=== PATIENT | female | born 1970 | race Caucasian/White ===

== ENCOUNTER 2017-04-08 01:34 | Inpatient (IN) | payer MEDICAID ==
[~2017-04-08] VITALS: Ht 160 cm; Wt 63.5 kg
[2017-04-08] VITALS (10 sets, daily range): BP systolic 117–124; BP diastolic 69–76; PULSE 71–90; RESP 16–22; TEMP 98.1; Ht 160 cm; Wt 63.5 kg
[~2017-04-08 01:34] MED LIST: DENIES
[2017-04-08] MEDS ORDERED: SOD CHLORIDE 0.9% 1,000 ML IV STA (02:24)
[2017-04-08 02:33] LABS: ADD SCAN DIFF NO
--- NOTE | 2017-04-08 02:33 | ERD ---
ER Documentation Chief Complaint Date/Time DATE: 04/08/17 TIME: 02:31 Chief Complaint heavy vaginal bleeding since 1 pm HPI 46-year-old male presents here in emergency department for complaints of vaginal bleeding that started 5 days ago, worst tonight. Patient has soaked multiple pads today. Patient has history of uterine fibroids. Patient has not had any menstruation last 2 months. Patient is complaining of pelvic pain and cramping pain him a 6/10 scale, not better or worse with anything. Patient did not take any medication to stop her symptoms. ROS All systems reviewed and are negative except as per history of present illness. Medications Home Meds Reported Medications [Denies] No Conflict Check 05/17/11 Allergies Allergies: Coded Allergies: Menthol Contain Prod (Verified Allergy, Mild, 04/08/17) PMhx/Soc Medical and Surgical Hx: pt denies Surgical Hx Anesthesia Reaction: No Hx Neurological Disorder: No Hx Respiratory Disorders: No Hx Cardiac Disorders: No Hx Psychiatric Problems: No Hx Miscellaneous Medical Probl: Yes (fibroids) Hx Alcohol Use: No Hx Substance Use: No Hx Tobacco Use: No Smoking Status: Never smoker FmHx Family History: No coronary disease, No diabetes, No other Physical Exam Vitals Vital Signs Date Time Temp Pulse Resp B/P Pulse Ox O2 Delivery O2 Flow Rate FiO2 04/08/17 01:51 97.2 84 20 102/69 99 Physical Exam GENERAL: The patient is well developed and appropriate for usual state of health, patient is pale. CHEST: Clear to auscultation bilaterally. There are no rales, wheezes or rhonchi. HEART: Regular rate and rhythm. No murmurs, clicks, rubs or gallops. No S3 or S4. ABDOMEN: Soft, nontender and nondistended. Good bowel sounds. No rebound or guarding. No gross peritonitis. No gross organomegaly or masses. No Lam sign or McBurney point tenderness. BACK: No midline or flank tenderness. EXTREMITIES: Equal pulses bilaterally. There is no peripheral clubbing, cyanosis or edema. No focal swelling or erythema. Full range of motion. Grossly neurovascularly intact. NEURO: Alert and oriented. Cranial nerves 2-12 intact. Motor strength in all 4 extremities with 5/5 strength. Sensation grossly intact. Normal speech and gait. SKIN: There is no apparent rash or petechia. The skin is warm and dry. HEMATOLOGIC AND LYMPHATIC: There is no evidence of excessive bruising or lymphedema. No gross cervical, axillary, or inguinal lymphadenopathy. Result Diagram: 04/08/176 04/08/17 0226 Results 24 hrs Laboratory Tests Test 04/08/17 02:26 04/08/17 02:52 White Blood Count 12.010^3/ul Red Blood Count 3.5610^6/ul Hemoglobin 10.2g/dl Hematocrit 30.3% Mean Corpuscular Volume 85.1fl Mean Corpuscular Hemoglobin 28.7pg Mean Corpuscular Hemoglobin Concent 33.7g/dl Red Cell Distribution Width 14.2% Platelet Count 49501^3/UL Mean Platelet Volume 9.0fl Neutrophils % 72.5% Lymphocytes % 20.5% Monocytes % 4.6% Eosinophils % 1.7% Basophils % 0.3% Nucleated Red Blood Cells % 0.0/100WBC Neutrophils # 8.710^3/ul Lymphocytes # 2.510^3/ul Monocytes # 0.610^3/ul Eosinophils # 0.210^3/ul Basophils # 0.010^3/ul Nucleated Red Blood Cells # 0.010^3/ul Sodium Level 136mmol/L Potassium Level 3.5mmol/L Chloride Level 102mmol/L Carbon Dioxide Level 25mmol/L Anion Gap 13 Blood Urea Nitrogen 17mg/dl Creatinine 0.61mg/dl Glucose Level 214mg/dl Calcium Level 9.2mg/dl Total Bilirubin 0.1mg/dl Direct Bilirubin 0.00mg/dl Indirect Bilirubin 0.1mg/dl Aspartate Amino Transf (AST/SGOT) 24IU/L Alanine Aminotransferase (ALT/SGPT) 27IU/L Alkaline Phosphatase 102IU/L Total Protein 7.1g/dl Albumin 4.6g/dl Globulin 2.50g/dl Albumin/Globulin Ratio 1.84 Beta HCG, Quantitative < 2.4mIU/ml Urine Color RED Urine Clarity SLIGHTLY CLOUDY Urine pH 6.0 Urine Specific [place] 1.020 Urine Ketones NEGATIVE Urine Nitrite NEGATIVE Urine Bilirubin NEGATIVE Urine Urobilinogen 0.2 E.U./dL Urine Leukocyte Esterase TRACE Urine Microscopic RBC >200/HPF Urine Microscopic WBC 0-2/HPF Urine Squamous Epithelial Cells FEW Urine Bacteria FEW Urine Hemoglobin 3+ Urine Glucose 0.1%% Urine Total Protein 1+ Current Medications Medications (Trade) Dose Ordered Sig/Anthony Route PRN Reason Start Time Stop Time Status Last Admin Dose Admin Sodium Chloride (NS) 1,000 ml @ 1,000 mls/hr Q1H STAT IV 04/08/17 02:24 04/08/17 03:23 DC 04/08/17 02:28 Normal saline IV bolus was given here in emergency department for rehydration, patient tolerated IV fluids. PROCEDURE: Ultrasound of the pelvis. CLINICAL INDICATION: Vaginal bleeding TECHNIQUE: Transabdominal and transvaginal ultrasound of the pelvis was performed to better evaluate the pelvic viscera. COMPARISON: No pertinent prior examinations were submitted for comparison. FINDINGS: LAST MENSTRUAL PERIOD: Unavailable UTERUS: Size: 9.2 x 5.7 x 7.2 cm. The uterine texture is homogeneous. The endometrium measures 20 mm which is thickened. RIGHT OVARY: Size: 3.4 x 2.3 x 2.3 cm. There is a 1.9 x 2 x 1.6 cm simple cyst / follicle within the right ovary. Normal Doppler flow is noted to the right ovary. LEFT OVARY: Size: 3.8 x 2.3 x 1.9 cm. No ovarian lesion or cyst is identified.Normal Doppler flow is noted to the left ovary. CUL-DE-SAC: There is trace pelvic free fluid. IMPRESSION: Thickened endometrium. Right ovarian cyst / follicle. No evidence of ovarian torsion. RPTAT: HIKT .Ras Brody MD, MD Date Time Electronically viewed and signed by .Ras Brody MD, MD on 04/08/2017 03:25 .T/ CC: BAYLEE VALENZUELA [employer] FINISHER Procedures/MDM Medical Decision Making: Patients vaginal bleeding is most likely consistent of possible dysfunctional uterine bleeding. Patient has orthostatic hypotension with this. Feels very dizzy, I discussed this case with my attending physician, also with OB laborist, Dr. Mathur, recommended for the patient to be admitted to the hospital for further evaluation and observation, OB will consult since patient is having vaginal bleeding. Departure Diagnosis: Primary Impression: Dysfunctional uterine bleeding Additional Impressions: Orthostatic hypotension Ovarian cyst Laterality: right Qualified Code: N83.201 - Cyst of right ovary Condition: Fair BAYLEE VALENZUELA NP Apr 08, 2017 02:32 Vaginal bleeding Additional Impression: Ovarian cyst Laterality: right Qualified Code: N83.201 - Cyst of right ovary Condition: Stable Patient Instructions: Dysfunctional Uterine Bleeding, Ovarian Cyst BAYLEE VALENZUELA NP Apr 08, 2017 02:32
[2017-04-08 02:35] LABS: BASOPHILS % 0.3 % (0.0-2.0); EOSINOPHILS # 0.2 10^3/ul (0.0-0.5); EOSINOPHILS % 1.7 % (0.0-7.0); HEMATOCRIT 30.3 % (37.0-47.0); HEMOGLOBIN 10.2 g/dl (12.0-16.0); LYMPHOCYTES # 2.5 10^3/ul (0.8-2.9); LYMPHOCYTES % 20.5 % (15.0-51.0); MEAN CORPUSCULAR HEMOGLOBIN 28.7 pg (29.0-33.0); MEAN CORPUSCULAR HGB CONC 33.7 g/dl (32.0-37.0); MEAN CORPUSCULAR VOLUME 85.1 fl (82.0-101.0); MONOCYTE # 0.6 10^3/ul (0.3-0.9); MONOCYTES % 4.6 % (0.0-11.0); NEUTROPHIL # 8.7 10^3/ul (1.6-7.5); NEUTROPHILS % 72.5 % (39.0-77.0); PLATELET COUNT 328 10^3/UL (140-415); RED BLOOD COUNT 3.56 10^6/ul (4.20-5.40); RED CELL DISTRIBUTION WIDTH 14.2 % (11.5-14.5)
[2017-04-08 03:16] LABS: ADD UMIC YES; UR BILIRUBIN (Dip) NEGATIVE (NEGATIVE); UR BLOOD (Dip) 3+ (NEGATIVE); UR CLARITY SLIGHTLY CLOUDY (CLEAR); UR COLOR RED (YELLOW); UR KETONES (Dip) NEGATIVE (NEGATIVE); UR LEUKOCYTE ESTERASE (Dip) TRACE (NEGATIVE); UR NITRITE (Dip) NEGATIVE (NEGATIVE); UR TOTAL PROTEIN (Dip) 1+ (NEGATIVE); UR UROBILINOGEN (Dip) 0.2 E.U./dL (0.1-1.0)
[2017-04-08 03:21] LABS: ALBUMIN 4.6 g/dl (3.3-4.9); ALBUMIN/GLOBULIN RATIO 1.84; BILIRUBIN,INDIRECT 0.1 mg/dl (0-1.1); BILIRUBIN,TOTAL 0.1 mg/dl (0.2-1.3); CALCIUM 9.2 mg/dl (8.4-10.2); CREATININE 0.61 mg/dl (0.44-1.00); POTASSIUM 3.5 mmol/L (3.5-5.1); TOTAL PROTEIN 7.1 g/dl (6.1-8.1)
--- NOTE | 2017-04-08 03:26 | RADRPT ---
PROCEDURE: Ultrasound of the pelvis. CLINICAL INDICATION: Vaginal bleeding TECHNIQUE: Transabdominal and transvaginal ultrasound of the pelvis was performed to better evalua te the pelvic viscera. COMPARISON: No pertinent prior examinations were submitted for comparison. FINDINGS: LAST MENSTRUAL PERIOD: Unavailable UTERUS: Size: 9.2 x 5.7 x 7.2 cm. The uterine texture is homogeneous. The endometrium measures 20 mm which i s thickened. RIGHT OVARY: Size: 3.4 x 2.3 x 2.3 cm. There is a 1.9 x 2 x 1.6 cm simple cyst / follicle within the right ovary. Normal Doppler flow is noted to the right ovary. LEFT OVARY: Size: 3.8 x 2.3 x 1.9 cm. No ovarian lesion or cyst is identified.Normal Doppler flow is noted to th e left ovary. CUL-DE-SAC: There is trace pelvic free fluid. IMPRESSION: Thickened endometrium. Right ovarian cyst / follicle. No evidence of ovarian torsion. RPTAT: HIKT .Ras Brody MD, MD Date Time Electronically viewed and signed by .Ras Brody MD, on 04/08/2017 03:25 .T/
[2017-04-08 03:35] LABS: UR SQUAMOUS EPITHELIAL CELL FEW; URINE RBCS >200 /HPF (0)
[2017-04-08 03:36] LABS: UR BACTERIA FEW
[2017-04-08] MEDS ORDERED: LACTATED RINGER'S 1,000 ML IV SCH (06:02)
--- NOTE | 2017-04-08 06:47 | PREOPHP ---
DATE OF ADMISSION: 04/08/2017 Dear Ms. Oralia Hogue and Dr. Moreno: Thank you very much for allowing me to participate in the care of your patient. As you know, she is a 46-year-old pleasant female, 3, para 3-0-0-3 who presented to the emergency department with complaint of extremely heavy vaginal bleeding with clot passing in the last 2 weeks and dizziness. She states her menses was extremely heavy one year ago. She was seen at [facility]. Ultrasound and endometrial biopsy performed, and then she was placed on oral contraceptive pills then few months ago it switched to Lo-Loestrin. At that time, she had regular menstrual cycles with minimal bleeding during her menses. Again she is experiencing extremely heavy vaginal bleeding with clot passing in last 2 weeks though still is on OCP. Her B-hCG in negative. GYNECOLOGIC HISTORY: Menarche at age 14.Menstrual history as noted above. She is sexually active. She using oral contraceptive pills for contraception. She denies a history of sexually transmitted infection, genital herpes, PID, or abnormal Pap smear. OBSTETRIC HISTORY: G3, P3-0-0-3, normal vaginal deliveries. PAST MEDICAL HISTORY: Cholelithiasis, vaginal cyst. PAST SURGICAL HISTORY: Cholecystectomy, removal of vaginal cyst. SOCIAL HISTORY: She is . She denies tobacco, alcohol, or drug use. FAMILY HISTORY: Negative. She denies uterine, breast, ovarian, or colon cancer in her family. ALLERGIES: NO KNOWN DRUG ALLERGIES. MEDICATIONS: Oral contraceptive pills. PHYSICAL EXAMINATION: VITAL SIGNS: Blood pressure 100/60, pulse rate 74, respiratory rate 18, temperature 98.1 GENERAL: She is very pale, no acute distress, appropriate mood and affect. HEART: Regular rhythm and rate. No murmur. LUNGS: Clear to auscultation bilateral. ABDOMEN: Soft, nontender, no organomegaly. FLANKS: No CVA tenderness bilateral. EXTREMITIES: No edema, cyanosis, thigh or calf tenderness bilateral. PELVIC: External genitalia, there is blood all over her vulva and upper thigh. Vagina with a lot of clots and blood, clots removed with ring forceps. Cervix hypertrophied, no lesions seen. Uterus normal size, mobile, nontender. Adnexa: No palpable mass bilateral. LABORATORIES: WBCs 12,000, hemoglobin 10.2, hematocrit 30.3, platelets 328. Sodium 136, potassium 3.5, BUN 17, creatinine 0.6, AST 24, ALT 27. Beta hCG less than 2.4. Imaging: Transvaginal ultrasound revealed uterus with a size of 9.2 x 5.7 x 7.2 cm. The uterine texture is homogenous. The endometrium measures 20 mm which is thickened. Right ovary 3.4 x 2.3 x 2.3 cm with a 1.9 x 2 x 1.6 cm simple cyst/follicle. Left ovary with a size of 3.8 x 2.3 cm. ASSESSMENT AND PLAN: A 46-year-old 3, para 3-0-0-3 with abnormal uterine bleeding, secondary anemia and thickened endometrium. She has extremely heavy vaginal bleeding with clot passing. Treatment options with risks, benefits, alternatives discussed. She would like to have a D and C. Risk of dilation and curettage including, but not limited to, bleeding, infection, injury to other organs like bowel, bladder, ureter, vessels if uterine perforation occurs, blood transfusion, blood transfusion related infection, removal of uterus, or any other indicated surgery discussed with patient and her in detail. Both expressed understanding. All of their questions answered.She would like to proceed with surgery. CBC, Blood type and screen done. Dictated By: MYRIAM ATWOOD MD SH/NTS Conf#: [id number] DID#: [id number] CC: ORALIA HOGUE NP; MATEO MORENO MD;*EndCC* MTDD
[2017-04-08] MEDS ORDERED: D5W-0.45 NACL + KCL 20 MEQ 1,000 ML IV SCH (07:41)
[2017-04-08] MEDS ORDERED: ONDANSETRON 4 MG INJ IV PRN ×2 (08:00→12:30)
[2017-04-08] MEDS ORDERED: morphine 2 MG INJ IV PRN (08:00)
[2017-04-08] MEDS ORDERED: ACETAMINOPHEN 325 MG TAB PO PRN (08:00)
[2017-04-08] MEDS ORDERED: HYDROCODONE/APAP (5/325) TAB PO PRN (08:00)
[2017-04-08] MEDS ORDERED: ZOLPIDEM 5 MG TAB PO PRN (08:00)
[2017-04-08] MEDS ORDERED: DOCUSATE SODIUM 100 MG CAP PO PRN (08:00)
[2017-04-08] MEDS ORDERED: NACL 0.9% 3 ML SYG IV SCH (08:00)
--- NOTE | 2017-04-08 08:08 | HP ---
DATE OF ADMISSION: 04/08/2017 TIME: 7 a.m. CHIEF COMPLAINT: Dysfunctional uterine bleeding with dizziness. HISTORY OF PRESENT ILLNESS: The patient is a 46-year-old female, 3. The patient presents t o the ER with complaint of heavy vaginal bleeding with clots passing in the last 2 weeks as well as dizziness. She states that her menses is a very heavy over the past year. The patient was seen at [facility]. Endometrial biopsy was performed, and she was placed on OCPs. She states that the OCPs did reduce her bleeding, and she does have regular menstrual cycles with minimal bleeding as of late, but in the past 2 weeks, she started to have extremely heavy vaginal bleeding ____ clot passing. In the ED, the patient was noted to be anemic with a hemoglobin of 10.2. Blood pressure w as also on the lower side. The patient stated that she was told that she has fibroids in the past. PAST MEDICAL HISTORY: Cholelithiasis as well as gynecologic history as above. PAST SURGICAL HISTORY: Cholecystectomy and removal of vaginal cyst. HOME MEDICATIONS: None reported. ALLERGIES: NO KNOWN DRUG ALLERGIES. FAMILY HISTORY: Negative. SOCIAL HISTORY: The patient denies any tobacco, alcohol, or drug use. REVIEW OF SYSTEMS: A 12-point review of systems negative except as stated in the HPI. PHYSICAL EXAMINATION: VITAL SIGNS: Temperature is 98.0, pulse 79, respiratory rate is 19, BP is 99/64, saturation 100% on room air. GENERAL: No acute distress, alert and oriented. HEENT: Normocephalic, atraumatic. LUNGS: Clear to auscultation. CARDIOVASCULAR: Regular rate and rhythm. ABDOMEN: Nondistended, nontender, soft. EXTREMITIES: No clubbing, cyanosis, or edema. LABORATORIES: White count is 12.0, hemoglobin is ____, platelets are 328. Chemistry within normal limits. INR is normal. UA is within normal limits except for 3+ hemoglobin, 0.1% glucose, 1% total protein, trace leukocyte esterase. DIAGNOSTICS: Pelvic ultrasound shows a thickened endometrium, right ovarian cyst ____, no evidence of ovarian torsion. ASSESSMENT AND PLAN: 1. Dizziness with hypotension secondary to anemia from heavy vaginal bleeding. The patient has bee n evaluated by gynecology with plans for D and C today. We will monitor H and H and if indicated, t he patient will receive blood transfusion. At this time the patient is not tachycardic, although th e blood pressure is low and can hold on transfusion. 2. Leukocytosis, likely reactive. 3. Prophylaxis: SCDs. Dictated By: MATEO YOUNG MD BS/NTS Conf#: [id number] DID#: [id number]
[2017-04-08] MEDS ORDERED: SOD CHLORIDE 0.9% 250 ML IV* ONE (08:12)
[2017-04-08] MEDS ORDERED: LIDOCAINE 1% (MDV) 20 ML INJ ONE (11:49)
[2017-04-08] MEDS ORDERED: PROPOFOL 20 ML ONE (11:49)
[2017-04-08] MEDS ORDERED: CEFAZOLIN 1 GM INJ ONE (11:55)
[2017-04-08] MEDS ORDERED: ONDANSETRON 4 MG INJ ONE (12:03)
[2017-04-08] MEDS ORDERED: DEXAMETHASONE 4 MG/ML 1 ML INJ ONE (12:03)
[2017-04-08] MEDS ORDERED: FAMOTIDINE 20 MG INJ ONE (12:03)
[2017-04-08] MEDS ORDERED: MIDAZOLAM 1 MG/ML 2 ML INJ ONE (12:09)
[2017-04-08] MEDS ORDERED: HYDROmorphONE (0.2 MG/ML) 10ML SYG IV PRN ×2 (12:30)
[2017-04-08] MEDS ORDERED: DIPHENHYDRAMINE 50 MG INJ IV PRN (12:30)
[2017-04-08] MEDS ORDERED: MEPERIDINE 25 MG INJ IV PRN (12:30)
[2017-04-08 13:13] LABS: HEMATOCRIT 28.3 % (37.0-47.0); HEMOGLOBIN 9.6 g/dl (12.0-16.0)
--- NOTE | 2017-04-10 21:29 | OPR ---
DATE OF OPERATION: 04/08/2017 PREOPERATIVE DIAGNOSIS: A 46-year-old 3, para 3-0-0-3 with abnormal uterine bleeding and th ickened endometrium. POSTOPERATIVE DIAGNOSIS: A 46-year-old 3, para 3-0-0-3 with abnormal uterine bleeding and t hickened endometrium. OPERATION PERFORMED: Dilation and curettage. SURGEON: Myriam Ramírez MD PIERCER OPERATOR: None. ANESTHESIA: General endotracheal anesthesia. ESTIMATED BLOOD LOSS: 50 mL. INTRAVENOUS FLUID: 1200 mL. SPECIMENS: 1. Endocervical curettage. 2. Endometrial curettage. COMPLICATIONS: None. FINDINGS: Exam under anesthesia, external genitalia and vagina within normal. Cervix multiparous w ithout lesion. Uterus 8-week size, mobile, anteverted. Adnexa: No palpable mass bilaterally. INDICATION AND HISTORY: A 46-year-old 3, para 3-0-0-3 with abnormal uterine bleeding and th ickened endometrium. She was seen in emergency department. She has extremely heavy vaginal bleedin g with clot passing. Treatment options including dilation and curettage discussed in detail with rubi chapa patient and her . Both expressed understanding. They would like to proceed with the proce dure. Risks of surgery including but not limited to bleeding, infection, uterine perforation, injur y to other organs (bowel, bladder, ureter, vessels, nerves) if uterine perforation occurs, blood tra nsfusion, blood transfusion-related infection, scar formation, risk of anesthesia, any other indicat ed surgery discussed in detail with the patient and her . They expressed understanding. All of their questions answered. She signed the informed consent. PROCEDURE IN DETAIL: The patient was identified and the procedure verified. She was given general anesthesia without difficulty and placed in the modified dorsal lithotomy position. The patient was examined under general anesthesia with the above findings. The patient was then prepped and draped in the normal sterile fashion. The bladder was drained by insertion of a straight catheter. Then a weighted speculum was used to visualize the cervix, which was grasped anteriorly with a single-too tenaculum. There was a lot of clot with some tissue expelling from the cervix. For this ____, I was not able to do endocervical curettage initially. The cervix already was opened. The uterus wa s sounded to 10 cm. The cervix was dilated more with Hegar dilators to #9. Then a sharp curette wa s gently introduced into uterine cavity and curettage performed until a gritty texture was felt in a ll 4 quadrants. There was a large amount of normal-appearing endometrial tissue. After cleaning th e cervix with gauze and Telfa pad, the endocervical curettage performed. Both specimens of the endo cervix and endometrial tissue sent to pathology. Tenaculum was removed. There was no bleeding from the tenaculum site. The speculum was removed. The patient tolerated the procedure well. She was extubated in the operating room and transferred to the recovery room in stable condition. Dictated By: MYRIAM JACKSON/MORGAN Conf#: [id number] DID#: [id number]
== END 2017-04-08 16:35 | disposition home or self-care (01) | DRG 745 ==
LOC: FTE 01:34 → SDS 10:18 → REC 10:37 → SDS 10:37 → REC 16:35
PROVIDERS: ADMIT Internal Medicine; ATTEND Internal Medicine
PROC: 30233N1 Transfusion of Nonautologous Red Blood Cells into Peripheral Vein, Percutaneous Approach (ICD-10-PCS; 2017-04-08)
PROC: 0UDB7ZZ Extraction of Endometrium, Via Natural or Artificial Opening (ICD-10-PCS; principal; 2017-04-08 09:30)
DX: N93.8 Other specified abnormal uterine and vaginal bleeding (principal); D50.0 Iron deficiency anemia secondary to blood loss (chronic); R93.8 Abnormal findings on diagnostic imaging of other specified body structures; I95.1 Orthostatic hypotension; R42 Dizziness and giddiness; D72.829 Elevated white blood cell count, unspecified; Z90.49 Acquired absence of other specified parts of digestive tract
CPT/HCPCS: 36430; 76856; 80053; 81001; 84702; 85014; 85018; 85025; 86850; 86900; 86901; 86920; 88305; J0690; J1100; J2250; J2405; J7030; J7040; J7120; P9016

== ENCOUNTER 2017-04-23 10:57 | Emergency (ER) | payer MEDICAID ==
[~2017-04-23] VITALS: Ht 154.9 cm; Wt 79.0 kg
[2017-04-23 11:02] VITALS: Ht 154.9 cm; Wt 79.0 kg
--- NOTE | 2017-04-23 12:10 | ERD ---
ER Documentation Chief Complaint Date/Time DATE: 04/23/17 TIME: 12:07 Chief Complaint S/P D&c on april 07, spotting on and off since then HPI Patient is a 46-year-old female with past medical history of fibroids and dysfunctional uterine bleeding who presents to the emergency department for concerns of vaginal spotting which is on and off for the last 2 weeks. Patient had a D&C on 04-07-17. Patient states since that time she has had on and off bleeding. Patient reports using the 1-2 panty liners per day. Patient states she has had some days where she has not bled at all. Patient denies any abdominal or pelvic pain. Patient denies any excessive bleeding. Patient denies any fevers, chills, nausea, vomiting, dysuria, diarrhea. Patient denies any dizziness or feelings of lightheadedness. ROS All systems reviewed and are negative except as per history of present illness. Medications Home Meds Active Scripts Docusate Sodium* (Colace*) 100 Mg Capsule, 100 MG PO BID, #60 CAP Prov:KIKE DIXON PA-C 04/23/17 Ferrous Sulfate* (Ferrous Sulfate*) 325 Mg Tabec, 325 MG PO BID, #60 TAB Prov:KIKE DIXON PA-C 04/23/17 Reported Medications [Denies] No Conflict Check 05/17/11 Allergies Allergies: Coded Allergies: Menthol Contain Prod (Verified Allergy, Mild, 04/08/17) PMhx/Soc Anesthesia Reaction: No Hx Neurological Disorder: No Hx Respiratory Disorders: No Hx Cardiac Disorders: No Hx Psychiatric Problems: No Hx Miscellaneous Medical Probl: Yes (fibroids) Hx Alcohol Use: No Hx Substance Use: No Hx Tobacco Use: No Smoking Status: Never smoker FmHx Family History: No diabetes Physical Exam Vitals Vital Signs Date Time Temp Pulse Resp B/P Pulse Ox O2 Delivery O2 Flow Rate FiO2 04/23/17 11:02 98.5 77 18 131/63 99 Physical Exam GENERAL: Well-developed, well-nourished female. Appears in no acute distress. HEAD: Normocephalic, atraumatic. EYES: Pupils are equally reactive bilaterally. EOMs grossly intact. No conjunctival erythema. No conjunctival pallor. ENT: Moist mucous membranes. No uvula deviation. No kissing tonsils. NECK: Supple. No meningismus. Normal range of motion of the neck. LUNG: Clear to auscultation bilaterally. No rhonchi, wheezing, rales or coarse breath sounds. HEART: Regular rate and rhythm. No murmurs, rubs or gallops. ABDOMEN: Soft, nontender, and nondistended. Positive bowel sounds in all four quadrants. No rebound tenderness, no guarding. (-) McBurney's point tenderness. No CVA tenderness. EXTREMITIES: Equal pulses bilaterally. No peripheral clubbing, cyanosis or edema. No unilateral leg swelling. NEUROLOGIC: Alert and oriented. Moving all four extremities without any difficulty. Normal speech. Steady gait. SKIN: Normal color. Warm and dry. No rashes or lesions. Result Diagram: 04/23/17 1200 Results 24 hrs Laboratory Tests Test 04/23/17 12:00 White Blood Count 4.110^3/ul Red Blood Count 3.3310^6/ul Hemoglobin 9.8g/dl Hematocrit 29.8% Mean Corpuscular Volume 89.5fl Mean Corpuscular Hemoglobin 29.4pg Mean Corpuscular Hemoglobin Concent 32.9g/dl Red Cell Distribution Width 17.4% Platelet Count 28964^3/UL Mean Platelet Volume 8.2fl Neutrophils % 68.1% Lymphocytes % 22.0% Monocytes % 5.8% Eosinophils % 2.4% Basophils % 0.5% Nucleated Red Blood Cells % 0.0/100WBC Neutrophils # 2.810^3/ul Lymphocytes # 0.910^3/ul Monocytes # 0.210^3/ul Eosinophils # 0.110^3/ul Basophils # 0.010^3/ul Nucleated Red Blood Cells # 0.010^3/ul Procedures/MDM ED COURSE: The patient was stable throughout ED course. I kept the patient and/or family informed of laboratory and diagnostic imaging results throughout the ED course. DIAGNOSTIC IMAGING: Read by radiologist. DIAGNOSTIC IMAGING REPORT Patient: DEVEN HUMPHRIES : 1970 Age: 46 Sex: F MR #: [id number] DOS: 04/23/17 1148 Ordering MD: KIKE DIXON PA-C Location: [facility] Room/Bed: PROCEDURE: US Pelvis CLINICAL INDICATION: Vaginal bleeding TECHNIQUE: Sonographic evaluation of the pelvis was performed utilizing both transabdominal and transvaginal technique. Curved array transabdominal transducer technique as well as a high frequency endovaginal probe was utilized. Images were reviewed on the high-resolution PACS workstation. COMPARISON: No prior studies are available for comparison. FINDINGS: The uterus is normal in size, echogenicity, and morphology measuring 9.5 x 5.5 x 5.8 cm in dimension. The uterus is anteverted in normal position. The endometrium is normal for a menstrual age female measuring 6.9 mm in diameter. The normal trilaminar stripe of the endometrium is preserved. The right ovary measures 1.9 x 1.8 x 1.3 cm in dimension. The left ovary is not visualized. The right ovary is normal in size, echogenicity, and morphology. Normal Doppler flow is demonstrated. There are no adnexal masses. There is no significant free fluid in the pelvis. IMPRESSION: 1. Unremarkable appearance of the uterus and right ovary. 2. The left ovary was not visualized. RPTAT: HH .Diana Rogers MD, MD Date Time Electronically viewed and signed by .Diana Rogers MD, MD on 04/23/2017 12 :37 .G/ CC: KIKE DIXON PA-C MEDICAL DECISION MAKING: This is a 46-year-old female who presents with intermittent vaginal bleeding 2 weeks after D&C procedure. Patient reports using 1-2 panty liners per day. Patient denies any excessive bleeding. Patient denies any dizziness or feelings of lightheadedness. Vital signs were reviewed. Patient was afebrile. Patient's blood pressure was noted to be 131/63. Patient was hemodynamically stable. Urine test was negative. Abdominal exam was unremarkable. Pelvic ultrasound was unremarkable. CBC showed no evidence of systemic infection or severe anemia. Patient's hemoglobin level was noted to be 9.8. Patient is currently taking iron supplements. Patient advised to continue iron supplements. Patient will also be given Colace. Given these findings, the patients presentation is most consistent with dysfunctional uterine bleeding. I have a much lower clinical concern for , ectopic , threatened , spontaneous , cervical polyp, fibroid, uterine hyperplasia, thrombocytopenia, coagulopathy, idiopathic thrombocytopenic purpura , foreign body. Bleeding may be due to recent D &C. Patient advised to follow up with OBGYN. I discussed with patient that I am unable to rule out malignancy , patients need endometrial biopsy on an outpatient basis. Patient expressed understanding. PRESCRIPTIONS: Colace Ferrous sulfate supplements DISCHARGE: At this time, patient is stable for discharge and outpatient management. Patient was given a copy of all blood work and imaging studies obtained today. Patient was advised to follow-up with her [facility] in the next 1-2 days. Referral information provided. I have instructed the patient to follow-up with his/her primary care physician in 1-2 days. I have instructed the patient to promptly return to the ER for any new or worsening symptoms including increased pain, swelling, redness, warmth or fever. The patient and/or family expressed understanding of and agreement with this plan. All questions were answered. Home care instructions were provided. Departure Diagnosis: Primary Impression: Vaginal bleeding Additional Impression: Anemia Anemia type: unspecified type Qualified Code: D64.9 - Anemia, unspecified type Condition: Stable Patient Instructions: Dysfunctional Uterine Bleeding Referrals: COMMUNITY CLINICS YOU HAVE RECEIVED A MEDICAL SCREENING EXAM AND THE RESULTS INDICATE THAT YOU DO NOT HAVE A CONDITION THAT REQUIRES URGENT TREATMENT IN THE EMERGENCY DEPARTMENT. FURTHER EVALUATION AND TREATMENT OF YOUR CONDITION CAN WAIT UNTIL YOU ARE SEEN IN YOUR DOCTORS OFFICE WITHIN THE NEXT 1-2 DAYS. IT IS YOUR RESPONSIBILITY TO MAKE AN APPOINTMENT FOR FOLOW-UP CARE. IF YOU HAVE A PRIMARY DOCTOR --you should call your primary doctor and schedule an appointment IF YOU DO NOT HAVE A PRIMARY DOCTOR YOU CAN CALL OUR PHYSICIAN REFERRAL HOTLINE AT IF YOU CAN NOT AFFORD TO SEE A PHYSICIAN YOU CAN CHOSE FROM THE FOLLOWING [facility] [address] [facility] [address] [facility] [address] [facility] [address] [facility] [address] [facility]. [facility] [address] [facility]. [facility] YOU HAVE RECEIVED A MEDICAL SCREENING EXAM AND THE RESULTS INDICATE THAT YOU DO NOT HAVE A CONDITION THAT REQUIRES URGENT TREATMENT IN THE EMERGENCY DEPARTMENT. FURTHER EVALUATION AND TREATMENT OF YOUR CONDITION CAN WAIT UNTIL YOU ARE SEEN IN YOUR DOCTORS OFFICE WITHIN THE NEXT 1-2 DAYS. IT IS YOUR RESPONSIBILITY TO MAKE AN APPOINTMENT FOR FOLOW-UP CARE. IF YOU HAVE A PRIMARY DOCTOR --you should call your primary doctor and schedule and appointment IF YOU DO NOT HAVE A PRIMARY DOCTOR YOU CAN CALL OUR PHYSICIAN REFERRAL HOTLINE AT . IF YOU CAN NOT AFFORD TO SEE A PHYSICIAN YOU CAN CHOSE FROM THE FOLLOWING [facility] INSTITUTIONS: [facility] [address] [place] [address] [facility] [address] [place] [address] [facility] [address] [place] [address] [facility] [place] [address] [facility] [address] [place] [address]LEME [facility] [address] [place] [place] [id number] [facility] [address] [place] [address] [address] [place] [address] [facility], [address], [facility] [address] [address] [place] [place] [id number] [facility] [address] [place] [address] [address] [facility] [id number] - [address] [facility] [address] [address] [place], [place] [address] [facility]. [address], [facility] [address] [address] [address] [place] [address] Additional Instructions: Call your primary care doctor TOMORROW for an appointment during the next 1-2 days.See the doctor sooner or return here if your condition worsens before your appointment time. Follow-up with an [facility]. See referral list. You may need a hysterectomy for ongoing bleeding. KIKE DIXON PA-C Apr 23, 2017 12:10 KIKE DIXON PA-C Apr 23, 2017 12:10
[2017-04-23 12:11] LABS: ADD SCAN DIFF NO
[2017-04-23 12:14] LABS: BASOPHILS % 0.5 % (0.0-2.0); EOSINOPHILS # 0.1 10^3/ul (0.0-0.5); EOSINOPHILS % 2.4 % (0.0-7.0); HEMATOCRIT 29.8 % (37.0-47.0); HEMOGLOBIN 9.8 g/dl (12.0-16.0); LYMPHOCYTES # 0.9 10^3/ul (0.8-2.9); MEAN CORPUSCULAR HEMOGLOBIN 29.4 pg (29.0-33.0); MEAN CORPUSCULAR HGB CONC 32.9 g/dl (32.0-37.0); MEAN CORPUSCULAR VOLUME 89.5 fl (82.0-101.0); MEAN PLATELET VOLUME 8.2 fl (7.4-10.4); MONOCYTE # 0.2 10^3/ul (0.3-0.9); MONOCYTES % 5.8 % (0.0-11.0); NEUTROPHIL # 2.8 10^3/ul (1.6-7.5); NEUTROPHILS % 68.1 % (39.0-77.0); PLATELET COUNT 313 10^3/UL (140-415); RED BLOOD COUNT 3.33 10^6/ul (4.20-5.40); RED CELL DISTRIBUTION WIDTH 17.4 % (11.5-14.5); WHITE BLOOD COUNT 4.1 10^3/ul (4.8-10.8)
--- NOTE | 2017-04-23 12:38 | RADRPT ---
PROCEDURE: US Pelvis CLINICAL INDICATION: Vaginal bleeding TECHNIQUE: Sonographic evaluation of the pelvis was performed utilizing both transabdominal and tr ansvaginal technique. Curved array transabdominal transducer technique as well as a high frequency endovaginal probe was utilized. Images were reviewed on the high-resolution PACS workstation. COMPARISON: No prior studies are available for comparison. FINDINGS: The uterus is normal in size, echogenicity, and morphology measuring 9.5 x 5.5 x 5.8 cm in dimension . The uterus is anteverted in normal position. The endometrium is normal for a menstrual age fema le measuring 6.9 mm in diameter. The normal trilaminar stripe of the endometrium is preserved. The right ovary measures 1.9 x 1.8 x 1.3 cm in dimension. The left ovary is not visualized. The ri ght ovary is normal in size, echogenicity, and morphology. Normal Doppler flow is demonstrated. Th ere are no adnexal masses. There is no significant free fluid in the pelvis. IMPRESSION: 1. Unremarkable appearance of the uterus and right ovary. 2. The left ovary was not visualized. RPTAT: HH .Diana Rogers MD, Date Time Electronically viewed and signed by .Diana Rogers MD, on 04/23/2017 12:37 .G/
[2017-04-23] MEDS ORDERED: FER325 PO (13:56)
[2017-04-23] MEDS ORDERED: DOCU-144 PO (13:56)
== END 2017-04-23 14:10 | disposition home or self-care (01) ==
LOC: FTE 10:57
DX: N93.9 Abnormal uterine and vaginal bleeding, unspecified (principal); D64.9 Anemia, unspecified
CPT/HCPCS: 76830; 76856; 85025; Z7502